=== PATIENT | female | born 2000 | race Caucasian/White ===

== ENCOUNTER 2022-10-14 16:01 | Emergency (ER) | payer OTHER ==
[~2022-10-14] VITALS: Ht 162.6 cm; Wt 73.4 kg
[2022-10-14 16:22] VITALS: O2SAT 98
[2022-10-14] MEDS ORDERED: BO1 TP (17:48)
[2022-10-14] MEDS ORDERED: BACITRACIN ZINC OINT UDPKT TOP ONE (18:00)
[2022-10-14 18:05] VITALS: BP 112/80; PULSE 72; RESP 18; TEMP 98.7
== END 2022-10-14 18:08 | disposition home or self-care (01) ==
LOC: ER 16:01
DX: T23.101A Burn of first degree of right hand, unspecified site, initial encounter (principal); T31.0 Burns involving less than 10% of body surface; X11.8XXA Contact with other hot tap-water, initial encounter; Y93.89 Activity, other specified; Y92.89 Other specified places as the place of occurrence of the external cause; Y99.8 Other external cause status
CPT/HCPCS: 99282